=== PATIENT | female | born 1950 | race Caucasian/White ===

== ENCOUNTER → 2016-09-05 | Outpatient (CLI) | payer MEDICARE | LOC: ECHO 12:26 | DX: R01.1 Cardiac murmur, unspecified (principal); I51.7 Cardiomegaly | CPT/HCPCS: ECHO; 93306 ==

== ENCOUNTER → 2020-07-11 | Outpatient (CLI) | payer MEDICARE, OTHER ==
[~2020-07-11] VITALS: Ht 172.7 cm; Wt 103.4 kg
[~2020-07-11] MED LIST: AMLODIPINE BESY10 MG PO; BENAZEPRIL HCL40 MG PO; CALCIUM PO; COPAXONE40 MG/1 ML SQ; CRESTOR5 MG PO; DALFAMPRIDINE E10 MG PO; DULOXETINE HCL60 MG PO; HYDROCHLOROTH12.5 MG PO; LEVOTHYROXINE50 MCG PO; MULTI VIT PO; VIT C PO; VIT D3 PO; ZYRTEC10 MG PO
== END ==
LOC: OPSV 10:56
DX: G35 Multiple sclerosis (principal)
CPT/HCPCS: 96365; J2323; J2930

== ENCOUNTER → 2020-08-08 | Outpatient (CLI) | payer MEDICARE, OTHER ==
[~2020-08-08] VITALS: Ht 172.7 cm; Wt 102.1 kg
== END ==
LOC: OPSV 08:00
DX: G35 Multiple sclerosis (principal)
CPT/HCPCS: 96365; J2323; J2930

== ENCOUNTER → 2020-09-05 | Outpatient (CLI) | payer MEDICARE, OTHER ==
[2020-09-05 08:53] LABS: HEMOGLOBIN 14.4 gm/dl (12.3-15.3); RED BLOOD COUNT 5.05 M/UL (4.00-5.10); WHITE BLOOD COUNT 8.9 K/UL (4.5-11.0)
[2020-09-05 09:30] LABS: BUN/CREATININE RATIO 33 (0-10)
[2020-09-14 11:16] LABS: JCV ANTIBODY Negative (.)
== END ==
LOC: OPSV 07:54
PROVIDERS: Nurse Practitioner Family
DX: G35 Multiple sclerosis (principal)
CPT/HCPCS: 80053; 85027; 96365; 96375; J2930

== ENCOUNTER → 2020-10-03 | Outpatient (CLI) | payer MEDICARE, OTHER ==
[~2020-10-03] VITALS: Ht 172.7 cm; Wt 103.4 kg
== END ==
LOC: OPSV 09-05 08:00
DX: G35 Multiple sclerosis (principal)
CPT/HCPCS: 96365; 96375; J2323; J2930

== ENCOUNTER → 2020-10-31 | Outpatient (CLI) | payer MEDICARE, OTHER ==
[~2020-10-31] VITALS: Ht 172.7 cm; Wt 103.4 kg
== END ==
LOC: OPSV 07:56
DX: G35 Multiple sclerosis (principal)
CPT/HCPCS: 96365; 96375; J2323; J2930

== ENCOUNTER → 2020-11-28 | Outpatient (CLI) | payer MEDICARE, OTHER ==
[~2020-11-28] VITALS: Ht 172.7 cm; Wt 103.4 kg
[2020-11-28 09:04] LABS: HEMOGLOBIN 14.3 gm/dl (12.3-15.3); RED BLOOD COUNT 4.95 M/UL (4.00-5.10); WHITE BLOOD COUNT 8.9 K/UL (4.5-11.0)
[2020-11-28 09:17] LABS: BUN/CREATININE RATIO 37 (0-10)
[2021-01-06 17:09] LABS: JCV ANTIBODY Negative (.)
== END ==
LOC: OPSV 08:00
PROVIDERS: Nurse Practitioner Family
DX: G35 Multiple sclerosis (principal)
CPT/HCPCS: 80053; 85027; 96365; 96374; 96375; J2323; J2930

== ENCOUNTER → 2020-12-14 | Outpatient (CLI) | payer MEDICARE, OTHER | LOC: EMI 08:52 | DX: G35 Multiple sclerosis (principal) | CPT/HCPCS: 70553; 72156; A9577 ==

== ENCOUNTER → 2020-12-27 | Outpatient (CLI) | payer MEDICARE, OTHER ==
[~2020-12-27] VITALS: Ht 172.7 cm; Wt 103.4 kg
== END ==
LOC: OPSV 08:01
DX: G35 Multiple sclerosis (principal)
CPT/HCPCS: 96365; 96375; J2323; J2930

== ENCOUNTER → 2021-01-23 | Outpatient (CLI) | payer MEDICARE, OTHER ==
[~2021-01-23] VITALS: Ht 172.7 cm; Wt 103.4 kg
== END ==
LOC: OPSV 07:55
DX: G35 Multiple sclerosis (principal)
CPT/HCPCS: 96365; 96375; J2323; J2930

== ENCOUNTER → 2021-02-20 | Outpatient (CLI) | payer MEDICARE, OTHER ==
[~2021-02-20] VITALS: Ht 172.7 cm; Wt 103.4 kg
== END ==
LOC: OPSV 08:00
DX: G35 Multiple sclerosis (principal)
CPT/HCPCS: 96365; 96375; J2323; J2930

== ENCOUNTER → 2021-03-20 | Outpatient (CLI) | payer MEDICARE, OTHER ==
[~2021-03-20] VITALS: Ht 172.7 cm; Wt 103.4 kg
[2021-03-20 09:12] LABS: HEMOGLOBIN 14.6 gm/dl (12.3-15.3); RED BLOOD COUNT 5.07 M/UL (4.00-5.10); WHITE BLOOD COUNT 8.6 K/UL (4.5-11.0)
[2021-03-20 09:48] LABS: BUN/CREATININE RATIO 25 (0-10)
== END ==
LOC: OPSV 08:00
PROVIDERS: Nurse Practitioner Family
DX: G35 Multiple sclerosis (principal)
CPT/HCPCS: 36415; 80053; 85027; 96365; 96375; J2323; J2930

== ENCOUNTER → 2021-04-17 | Outpatient (CLI) | payer MEDICARE, OTHER ==
[~2021-04-17] VITALS: Ht 172.7 cm; Wt 103.4 kg
== END ==
LOC: OPSV 08:00
DX: G35 Multiple sclerosis (principal)
CPT/HCPCS: 96365; 96375; J2323; J2930

== ENCOUNTER → 2021-05-15 | Outpatient (CLI) | payer MEDICARE, OTHER ==
[~2021-05-15] VITALS: Ht 172.7 cm; Wt 103.4 kg
== END ==
LOC: OPSV 08:00
DX: G35 Multiple sclerosis (principal)
CPT/HCPCS: 96365; 96375; J2323; J2930

== ENCOUNTER → 2021-06-12 | Outpatient (CLI) | payer MEDICARE, OTHER ==
[~2021-06-12] VITALS: Ht 172.7 cm; Wt 103.4 kg
[2021-06-12 08:51] LABS: HEMOGLOBIN 14.6 gm/dl (12.3-15.3); RED BLOOD COUNT 5.13 M/UL (4.00-5.10); WHITE BLOOD COUNT 8.7 K/UL (4.5-11.0)
[2021-06-12 09:18] LABS: BUN/CREATININE RATIO 29 (0-10)
== END ==
LOC: OPSV 08:00
PROVIDERS: Nurse Practitioner Family
DX: G35 Multiple sclerosis (principal)
CPT/HCPCS: 36415; 80053; 85027; 96365; 96375; J2323; J2930

== ENCOUNTER → 2021-07-17 | Outpatient (CLI) | payer MEDICARE, OTHER ==
[~2021-07-17] VITALS: Ht 172.7 cm; Wt 103.4 kg
== END ==
LOC: OPSV 08:00
DX: G35 Multiple sclerosis (principal)
CPT/HCPCS: 96365; 96375; J2323; J2930

== ENCOUNTER → 2021-08-14 | Outpatient (CLI) | payer MEDICARE, OTHER ==
[~2021-08-14] VITALS: Ht 172.7 cm; Wt 103.4 kg
== END ==
LOC: OPSV 08:00
DX: G35 Multiple sclerosis (principal)
CPT/HCPCS: 96365; 96375; J2323; J2930

== ENCOUNTER → 2021-09-11 | Outpatient (CLI) | payer MEDICARE, OTHER ==
[~2021-09-11] VITALS: Ht 172.7 cm; Wt 103.4 kg
[2021-09-11 08:42] LABS: RED BLOOD COUNT 4.91 M/UL (4.00-5.10); WHITE BLOOD COUNT 9.7 K/UL (4.5-11.0)
[2021-09-11 09:10] LABS: BUN/CREATININE RATIO 47 (0-10)
== END ==
LOC: OPSV 08:00
PROVIDERS: Nurse Practitioner Family
DX: G35 Multiple sclerosis (principal)
CPT/HCPCS: 80053; 85027; 96365; 96375; J2323; J2930

== ENCOUNTER → 2021-10-10 | Outpatient (CLI) | payer MEDICARE, OTHER ==
[~2021-10-10] VITALS: Ht 172.7 cm; Wt 103.4 kg
== END ==
LOC: OPSV 08:00
DX: G35 Multiple sclerosis (principal)
CPT/HCPCS: 96365; 96375; J2323; J2930

== ENCOUNTER → 2021-11-06 | Outpatient (CLI) | payer MEDICARE, OTHER ==
[~2021-11-06] VITALS: Ht 172.7 cm; Wt 103.4 kg
== END ==
LOC: OPSV 08:00
DX: G35 Multiple sclerosis (principal)
CPT/HCPCS: 96365; 96375; J2323; J2930

== ENCOUNTER → 2022-01-01 | Outpatient (CLI) | payer MEDICARE, OTHER ==
[~2022-01-01] VITALS: Ht 172.7 cm; Wt 103.4 kg
== END ==
LOC: OPSV 08:00
DX: G35 Multiple sclerosis (principal)
CPT/HCPCS: 96365; 96375; J2323; J2930

== ENCOUNTER → 2022-01-25 | Outpatient (CLI) | payer MEDICARE, OTHER | LOC: MAMO 01-11 09:00 → EXRD 01-11 09:30 → MAMO 09:48 | DX: Z12.31 Encounter for screening mammogram for malignant neoplasm of breast (principal) | CPT/HCPCS: 77063; 77067 ==

== ENCOUNTER → 2022-01-29 | Outpatient (CLI) | payer MEDICARE, OTHER ==
[~2022-01-29] VITALS: Ht 172.7 cm; Wt 103.4 kg
== END ==
LOC: OPSV 08:00
DX: G35 Multiple sclerosis (principal)
CPT/HCPCS: 96365; 96375; J2323; J2930

== ENCOUNTER → 2022-02-27 | Outpatient (CLI) | payer MEDICARE, OTHER ==
[~2022-02-27] VITALS: Ht 172.7 cm; Wt 102.1 kg
[2022-02-27 08:57] LABS: HEMOGLOBIN 13.7 gm/dl (12.3-15.3); RED BLOOD COUNT 4.81 M/UL (4.00-5.10); WHITE BLOOD COUNT 8.5 K/UL (4.5-11.0)
[2022-02-27 09:24] LABS: BUN/CREATININE RATIO 40 (0-10)
== END ==
LOC: OPSV 08:00
PROVIDERS: Nurse Practitioner Family
DX: G35 Multiple sclerosis (principal)
CPT/HCPCS: 80053; 85027; 96365; 96375; J2323; J2930